=== PATIENT | male | born 1995 | race Caucasian/White ===

== ENCOUNTER 2016-08-30 15:44 | Emergency (ER) | payer BC ==
[2016-08-30 17:41] VITALS: BP 119/63
--- NOTE | 2016-08-30 23:27 | UC ---
GI Bleed HPI - HPI Summary HPI Summary: BRIGHT RED BLOOD ON TOILET PAPER X 1 MONTH. sharp pain with bms that resolved when bm finished.. bm only q2days. large hard bms. - History Of Current Complaint Chief Complaint: UCGI Stated Complaint: BLOOD IN STOOL Time Seen by Provider: 08/30/16 17:41 Hx Obtained From: Patient Onset/Duration: Gradual Onset, Lasting Weeks - 4, Still Present Timing: Constant Severity: Blood-Streaked Stool - blood on toilet paper only Severity Initially: Moderate Severity Currently: Moderate Pain Intensity: 0 Pain Scale Used: 0-10 Numeric Associated Pain: Discrete @ Character: Sharp Aggravating Factor(s): Bowel Movement Alleviating Factor(s): Other Associated Signs And Symptoms: Positive: Constipation. Negative: Back Pain, Dizziness, Weakness, Syncope, Nausea - Allergies/Home medications Allergies/Adverse Reactions: Allergies Allergy/AdvReac Type Severity Reaction Status Date / Time No Known Allergies Allergy Verified 08/30/16 17:41 PMH/Surg Hx/FS Hx/Imm Hx Previously Healthy: Yes - Surgical History Surgical History: None - Family History Known Family History: Negative: Cardiac Disease, Hypertension, Diabetes - Social History Lives: With Family Alcohol Use: Occasionally Substance Use Type: Excessive Caffeine Smoking Status (MU): Never Smoked Tobacco - Immunization History Vaccination Up to Date: Yes Review of Systems Constitutional: Negative Skin: Negative Respiratory: Negative Cardiovascular: Negative Gastrointestinal: Other - see hpi Genitourinary: Negative Neurological: Negative All Other Systems Reviewed And Are Negative: Yes Physical Exam Triage Information Reviewed: Yes Appearance: Well-Appearing, No Pain Distress, Well-Nourished Vital Signs: Initial Vital Signs Temp 98.5 F 08/30/16 17:34 Pulse 99 08/30/16 17:34 Resp 18 08/30/16 17:34 BP 119/63 08/30/16 17:34 Vital Signs Reviewed: Yes Eyes: Positive: Conjunctiva Clear. Negative: Discharge ENT: Positive: Hearing grossly normal. Negative: Muffled/hoarse voice Respiratory: Positive: Lungs clear, Normal breath sounds, No respiratory distress, No accessory muscle use Cardiovascular: Positive: RRR, No Murmur Abdomen Description: Positive: Nontender, Soft, Other: - rectal exam reveal hemmorrhoid at [address]oc[address]. Negative: CVA Tenderness (R), CVA Tenderness (L), Distended, Guarding Bowel Sounds: Positive: Present Musculoskeletal Exam: Normal Neurological: Positive: Alert, Muscle Tone Normal Psychological: Positive: Age Appropriate Behavior Skin Exam: Normal Bleed Course/Dx - Differential Dx/Diagnosis Differential Diagnosis/HQI/PQRI: Hemorrhoids, Other - fissure Provider Diagnoses: hemorrhoid Discharge - Discharge Plan Condition: Stable Disposition: HOME Prescriptions: Hydrocortisone SUPP* [Anusol HC Supp*] 25 mg [place] BID #28 supp Patient Education Materials: Laxative, Bulk-forming (By mouth), Hydrocortisone (Into the rectum), Hemorrhoids (ED) Referrals: Clare Zhang [Medical Doctor] - (Follow up as planned on the 11 of September) Additional Instructions: DISCUSSED, THERE IS A LOT THAT YOU CAN DO TO IMPROVE YOUR CHRONIC CONSTIPATION. FIBER AND PRUNES IN THE EVENING AND IS A GOOD PLACE TO START ALONG WITH THE "SQUATTY POTTY." IF THESE MEASURES ALONG DO NOT IMPROVE THE FREQUENCY OF BOWEL MOVEMENTS, YOU MAY ALSO WANT TO ADD A STIMULANT SUCH SENNA UNTIL YOUR BODY MAKES A HABIT OF A DAILY BM. PLEASE CONTINUE TO EDUACATE YOURSELF ON HOW TO IMPROVE YOUR DIGESTION. YOU MAY WANT TO REQUEST THAT YOUR PCP CHECK YOUR THYROID LEVELS SINCE YOU HAVE LONG STANDING CONSTIPATION AND FATIGUE.
== END 2016-08-30 18:59 | disposition home or self-care (01) ==
LOC: UCCORT 15:44
DX: K64.9 Unspecified hemorrhoids (principal); K59.00 Constipation, unspecified
CPT/HCPCS: 99202; G0463